=== PATIENT | female | born 1965 | race Caucasian/White ===

== ENCOUNTER 2020-07-27 08:40 | Emergency (ER) | payer OTHER, SELFPAY ==
[2020-07-27 08:42] VITALS: BP 145/88; PULSE 74; RESP 16; TEMP 36.6; O2SAT 100; BMI 21.1
--- NOTE | 2020-07-27 09:05 | RAD_ITS ---
STUDY: X-RAY - LEFT HAND REASON FOR EXAM: Left hand pain from left hand injury. TECHNIQUE: 3 view(s) of the hand. COMPARISON: None. FINDINGS: Normal radiocarpal articulation. Normal distal radioulnar joint. Normal visualized carpal bones. Normal carpal articulations. The scapholunate interval is at the upper limits of normal. Normal carpometacarpal articulation of the thumb. Normal second through fifth carpometacarpal joints. Normal metacarpi. Normal metacarpophalangeal joint of the thumb. Normal interphalangeal joint of the thumb. Normal proximal and distal phalanges of the thumb. Normal metacarpophalangeal joints of the second through fifth fingers. Normal proximal and distal interphalangeal joints of the second through fifth fingers. There is a nondisplaced spiral fracture of the fourth proximal phalangeal diaphysis. The soft tissue structures are unremarkable. RAD/Hand Min 3 Views IMPRESSION: Fourth proximal phalangeal fracture. Electronically Signed: Parker eJan MD at 9:28 EDT Tel , Service support ,
--- NOTE | 2020-07-27 09:14 | ED.VIS.GEN ---
History of Present Illness Chief Complaint: Upper Extremity Injury Narrative: 55-year-old female presenting with left hand pain. She states she was letting her daughter's dog in and the leash wrapped around her finger causing it to twist. She states that her immediately. And it sounded like a bubble wrap. Patient has no lacerations or abrasions. She states she is otherwise healthy. She has had no previous injuries to this finger. Past Medical History - Allergies and Home Meds Allergies/Adverse Reactions: Allergies No Known Allergies Allergy (Verified 07/27/20 08:41) Primary Care Physician: Venkatesh Garcia MD [STAFF PHYSICIAN] - Care Physician,No Primary [Primary Care Provider] - Prior records reviewed: Yes Past Medical History: - - Patient denies medical problems Surgical History: noncontributory Lives: With Family Smoking Status: Current every day smoker Alcohol: None Drugs: None Review of Systems General: Denies: Chills, Fever, Sweats Eyes: Denies: Visual changes - bilaterally, Diplopia ENT: Denies: Rhinorrhea, Sore throat Cardiovascular: Denies: Chest pain, Palpitations Respiratory: Denies: Dyspnea, Cough, Dyspnea on exertion Gastrointestinal: Denies: Abdominal pain, Nausea, Vomiting, Diarrhea, Melena, Hematochezia Genitourinary: Denies: Dysuria, Hematuria, Frequency Musculoskeletal: Reports: - - Pain in the left ring finger. Skin: Reports: - - Bruising and swelling of the left ring finger Neurological: Denies: Headache, Weakness, Parasthesia Physical Exam Vital Signs/Narrative: Vital Signs Temp Pulse Resp BP Pulse Ox 07/27/20 08:42 97.8 F 74 16 145/88 H 100 Inital Vital Signs reviewed: Yes General: Well nourished, No Acute Distress Head: Normocephalic, Atraumatic Eyes: Perrl, EOMI Cardiovascular: Regular rate, Regular rhythm Respiratory: No distress, CTA bilaterally Abdomen: Soft Extremities: - - There is to palpation of the proximal fourth phalanx on the left hand and into the PIP. There is ecchymosis and swelling. Skin: - - Ecchymosis and swelling of the left fifth ring finger Neurological: Alert, Oriented x3 Psychological: Normal affect Diagnostic/Tx/Re-eval Clinical Impression(s) from Imaging Studies Hand X-Ray 07/27/20 09:05 IMPRESSION: Fourth proximal phalangeal fracture. Electronically Signed: Parker Jean MD at 9:28 EDT Tel , Service support , - Medical Decision Making 55-year-old female presenting with left ring finger pain. X-ray shows that she has a right proximal phalangeal fracture. She is placed in a splint. She declines any analgesia. She was given follow-up with Dr. Tolliver. Impression: 1. Left hand fourth digit fracture ED Disposition - Plan for ED Patient: Disposition: Home or Assisted Living Instructions: ED FINGER FRACTURE Closed Referrals: Care Physician,No Primary [Primary Care Provider] - Venkatesh Garcia MD [STAFF PHYSICIAN] -
[2020-07-27 10:50] VITALS: BP 118/79; PULSE 62; RESP 15; O2SAT 99
== END 2020-07-27 10:52 | disposition home or self-care (01) ==
PROVIDERS: Emergency Provider Student in an Organized Health Care Education/Training Program
DX: S62.605A Fracture of unspecified phalanx of left ring finger, initial encounter for closed fracture (principal); F17.200 Nicotine dependence, unspecified, uncomplicated; X58.XXXA Exposure to other specified factors, initial encounter
CPT/HCPCS: 73130; 99283

== ENCOUNTER 2020-09-06 13:30 | Outpatient (RCR) | payer OTHER, SELFPAY ==
--- NOTE | 2020-08-30 15:14 | HP.OTEVAL ---
Patient's Visit Information ELLA LOBO is a 55 year old F, referred to Occupational Therapy by Dr. Misa Jorge DO, with a diagnosis of left 4th phalanx fx /stiffness. Date of Evaluation: 08/28/20 Occupational Therapist: Geovanna Perez, BECKY/Bria, CHT - Subjective This 55-year-old female was seen for OT with dx of left 4th finger middle phalanx fx pt states she broke is Jul.26. pt states her finger got caught up in dog collar. pt states she went to ER next morning and placed her in a splint. pt then went week later to ortho dr and was placed in another splint. pt states she michael taped for two weeks and has been out of the michael tape now for 4 days. pt states she is limited with her ROM has swelling and is sore. pt works at the [employer] full-time. 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 pt is wanting to return. - Pain left hand 4 Pain Intensity Range: 1, 6 - ROM MP: left 4th 0/75 right 0/90 PIP: left 4th -20/60 right 0/105 DIP: left 4th 0/0 right 0/55 ROM Comments: pt demo with limited DIP and PIP ROM at this time - Strength Rivet Spinner: left 15# left 60# Lateral Pinch: left 12# left 14# Tripod Pinch: left 10# left 18# Strength Comments: pt demo with limited left director community health nursing strength at this time - Edema Proximal Phalanx: left RF 6.5 right RF 5.3 - Sensation Thumb: right 2.83 left 2.83 Index: right 2.83 left 2.83 Middle: right 2.83 left 2.83 Ring: right 2.83 left 2.83 Little: right 2.83 left 2.83 - Quick DASH-Disab of Arm,Shoulder& Hand Quick DASH Score: 41.6650 - Goals Goal:: Pt will demo a increase in left director community health nursing strength to 40# or greater to increase pts ind. with ADls and IADLs by d.c Goal:: pt will demo a increase in left 4th PIP and DIP flex by 15* and PIP ext by 10* to increase pts ind. with forming a composite fist to use hand for ADls and IADLs by d.c Goal:: pt will report no pain greater than 1/10 with use of left hand with ADLs and IADLs by fernyc - Rehabilitation General Assessment: pt currently 4 weeks 5 days from fx. pt demo with limited ROM, weakness and edmea decreasing pts ind. with ADls and IADLs at this time. Pt would benefit from skilled OT services 2x week for 6 weeks to return pt to PLOF. Today therapist ed. pt on ROM of MCP, PIP and DIPs . Therpay will progress pt with PRE as kamilah. pt demo understanding and agree to POC. Rehabilitation Potential: Good - Anticipated Interventions A/AAROM/PROM, Strengthening, Edema Control, Triggerpoint Release, Desensitization, Modalities, Orthoses, Joint Protection/Energy Conservation - Visit Plan Frequency: 2x /Week Duration: 6 Weeks TEXT: Thank you for the opportunity to evaluate your patient. For Medicare and Medicare HMO plans, please review the plan of care and approve it. It will need to be FAXED BACK to us at [phone] for Medicare purposes. Please let me know if there are questions or concerns regarding this plan of care. Physician Signature: Date:
--- NOTE | 2021-02-01 13:53 | HP.OT.NRP ---
ELLA LOBO was seen in my office for initial evaluation on 08/28/20. The following Plan of Care was established for this patient: Initial Frequency: 2x /Week Initial Duration: 6 Weeks Plan: cont to increase pts ROM Anticipated Interventions: A/AAROM/PROM, Strengthening, Edema Control, Triggerpoint Release, Desensitization, Modalities, Orthoses, Joint Protection/Energy Conservation This patient was last seen in our office 09/06/20. Pertinent comments regarding their Occupational therapy will appear below: pt was seen for 2 OT visits, 1 cancellation and no further scheduled apts. pt d.c due to non attendance. At this point I will be discontinuing this patient from occupational therapy. I would be happy to see this patient again in the future if found appropriate by the physician. Thank you! Geovanna Perez, OTR/L, CHT
== END 2020-09-06 19:00 | disposition home or self-care (01) ==
LOC: OT 13:30
PROVIDERS: Referring Provider Orthopaedic Surgery; Visit Provider Orthopaedic Surgery
DX: S62.625D Displaced fracture of middle phalanx of left ring finger, subsequent encounter for fracture with routine healing (principal); M25.642 Stiffness of left hand, not elsewhere classified
CPT/HCPCS: 97110; 97140; 97166